=== PATIENT | female | born 1965 | race Caucasian/White ===

== ENCOUNTER 2019-12-11 07:55 | Emergency (ER) | payer OTHER ==
[~2019-12-11] VITALS: Ht 165.1 cm; Wt 79.4 kg
[~2019-12-11 07:55] MED LIST: EFFEXOR XR75 MG; ESTROGEN; FLEXERIL PO; HYDROCODON-ACE1 EAC7 PO; ZOFRAN ODT4 MG PO; [UNRECOGNIZED DRUG - OTHER]
[2019-12-11 08:41] LABS: URINE BILIRUBIN NEGATIVE (Negative); URINE BLOOD NEGATIVE (Negative); URINE CLARITY CLEAR; URINE COLOR YELLOW; URINE GLUCOSE-RANDOM NEGATIVE (Negative); URINE KETONES NEGATIVE (Negative); URINE LEUKOCYTES-REFLEX NEGATIVE (Negative); URINE NITRITE-REFLEX NEGATIVE (Negative); URINE PROTEIN NEGATIVE (Negative); URINE UROBILINOGEN 0.2 E.U./dl (0.2-1.0)
[2019-12-11 09:00] LABS: ABSOLUTE EOSINOPHILS 0.1 thou/uL (0.0-0.7); ABSOLUTE LYMPHOCYTES 1.1 thou/uL (0.8-5.3); ABSOLUTE MONOCYTES 0.6 thou/uL (0.0-1.2); ABSOLUTE NEUTROPHILS 4.1 thou/uL (1.6-8.1); BASOPHILS 0.8 %; LYMPHOCYTES 18.3 %; MCH 29.8 pg (26.0-34.0); MCV 87.6 fL (80.0-100.0); MONOCYTES 10.5 %; MPV 7.8 fl. (7.2-11.1); NUCLEATED RBCS 0 /100WBC; PLATELET COUNT* 345 thou/uL (150-400); POLYS 69.4 %; RBC 4.68 mil/uL (4.20-5.00); RDW-CV 13.7 % (10.5-14.5); WBC 5.8 thou/uL (4.0-11.0)
[2019-12-11 09:14] LABS: CALCIUM 8.1 mg/dL (8.5-10.1); CREATININE 0.8 mg/dL (0.6-1.3); POTASSIUM 3.8 mmol/L (3.5-5.1)
[2019-12-11 09:19] LABS: ALBUMIN 3.8 g/dL (3.4-5.0); TOTAL BILIRUBIN 0.3 mg/dL (<0.1-1.0); TOTAL PROTEIN 7.2 g/dL (6.4-8.2)
[2019-12-11 10:27] LABS: INFLUENZA A ANTIGEN Negative (Negative); INFLUENZA B ANTIGEN Negative (Negative)
[2019-12-11] MEDS ORDERED: MEDROLDOSEPACK PO (11:09)
[2019-12-11] MEDS ORDERED: PROMETHAZINE-C473 ML PO (11:09)
[2019-12-11 11:43] VITALS: BP 114/64
== END 2019-12-11 11:44 | disposition home or self-care (01) ==
LOC: M.ERS 07:55
PROVIDERS: Personal Emergency Response Attendant
DX: J06.9 Acute upper respiratory infection, unspecified (principal)

== ENCOUNTER 2021-09-23 12:42 | Emergency (ER) | payer OTHER ==
[~2021-09-23] VITALS: Ht 162.6 cm; Wt 77.1 kg
[~2021-09-23 12:42] MED LIST changes: +MEDROLDOSEPACK PO; +PROMETHAZINE-C473 ML PO
[2021-09-23 12:58] VITALS: BP 144/53
[2021-09-23] MEDS ORDERED: MECLIZINE HCL25 M1 PO (13:19)
[2021-09-23] MEDS ORDERED: ZOFRAN ODT4 MG PO (13:19)
== END 2021-09-23 13:35 | disposition home or self-care (01) ==
LOC: M.ERS 12:42
DX: H81.12 Benign paroxysmal vertigo, left ear (principal); Z90.710 Acquired absence of both cervix and uterus